=== PATIENT | male | born 1995 | race African-American/Black ===

== ENCOUNTER 2022-10-13 12:10 | Emergency (ER) | payer OTHER ==
[~2022-10-13] VITALS: Ht 188 cm; Wt 84.8 kg
[2022-10-13 12:28] VITALS: BP 136/71; PULSE 64; RESP 16; TEMP 98.5; O2SAT 100
[2022-10-13] MEDS ORDERED: BACITRACIN ZINC OINT UDPKT TOP ONE (13:30)
[2022-10-13] MEDS ORDERED: LIDOCAINE HCL/PF 1% 10 MG/ML 5ML VIAL INFIL ONE (13:30)
[2022-10-13] MEDS ORDERED: IBUP-2029 MT (14:04)
== END 2022-10-13 14:33 | disposition home or self-care (01) ==
LOC: ER 12:52
DX: S01.511A Laceration without foreign body of lip, initial encounter (principal); Y93.64 Activity, baseball; Y92.89 Other specified places as the place of occurrence of the external cause; Y99.8 Other external cause status
CPT/HCPCS: 12011; 99282; J3490; Z7610